=== PATIENT | male | born 1990 | race Caucasian/White ===

== ENCOUNTER 2021-07-07 12:43 | Emergency (ER) | payer OTHER ==
[~2021-07-07] VITALS: Ht 180.3 cm; Wt 108.2 kg
[2021-07-07 12:56] VITALS: TEMP 98.6
[2021-07-07 14:09] VITALS: BP 139/90; PULSE 65
== END 2021-07-07 14:14 | disposition home or self-care (01) ==
LOC: COL.ER 12:43
DX: M79.672 Pain in left foot (principal)
CPT/HCPCS: J1885; L4386